=== PATIENT | female | born 1960 | race African-American/Black ===

== ENCOUNTER 2022-05-25 11:43 | Emergency (ER) | payer BC, MEDICAID ==
[~2022-05-25] VITALS: Ht 170.2 cm; Wt 82.0 kg
[2022-05-25 14:19] VITALS: BP 165/102
[2022-05-25] MEDS ORDERED: HYDROCODONE/ACETAMINOPHEN 5/325MG TABLET PO STA (14:19)
[2022-05-25] MEDS ORDERED: T3 PO (16:58)
[2022-05-25] MEDS ORDERED: NAPR-681 PO (16:58)
== END 2022-05-25 18:57 | disposition home or self-care (01) ==
LOC: ER 11:43
DX: S40.011A Contusion of right shoulder, initial encounter (principal); W01.0XXA Fall on same level from slipping, tripping and stumbling without subsequent striking against object, initial encounter; Y93.89 Activity, other specified; Y92.89 Other specified places as the place of occurrence of the external cause; Y99.8 Other external cause status
CPT/HCPCS: 73030; 99283; A4565

== ENCOUNTER 2022-12-07 14:04 | Emergency (ER) | payer BC, MEDICAID ==
[~2022-12-07] VITALS: Ht 170.2 cm; Wt 77.0 kg
[~2022-12-07 14:04] MED LIST: NAPR-681 PO; T3 PO
[2022-12-07] MEDS ORDERED: LIDOCAINE 5% PATCH TOP SCH (18:15)
[2022-12-07] MEDS ORDERED: LIDO700A15 TP (19:56)
[2022-12-07] MEDS ORDERED: IBUP-2029 MT (20:25)
[2022-12-07 20:32] VITALS: BP 136/75
== END 2022-12-07 20:00 | disposition home or self-care (01) ==
LOC: ER 14:04
DX: S20.212A Contusion of left front wall of thorax, initial encounter (principal); Z90.49 Acquired absence of other specified parts of digestive tract; X58.XXXA Exposure to other specified factors, initial encounter; Y93.89 Activity, other specified; Y92.89 Other specified places as the place of occurrence of the external cause; Y99.8 Other external cause status
CPT/HCPCS: 71101; 71250; 99284

== ENCOUNTER 2023-07-11 23:10 | Emergency (ER) | payer BC, MEDICAID ==
[~2023-07-11] VITALS: Ht 170.2 cm; Wt 78.6 kg
[~2023-07-11 23:10] MED LIST changes: +IBUP-2029 MT; +LIDO700A15 TP
[2023-07-11 23:47] VITALS: BP 136/95; PULSE 75; RESP 16; TEMP 97.9; O2SAT 100
[2023-07-12] MEDS ORDERED: IBUP-2029 MT (00:15)
== END 2023-07-12 00:28 | disposition home or self-care (01) ==
LOC: ER 23:10
DX: S90.32XA Contusion of left foot, initial encounter (principal); Z90.49 Acquired absence of other specified parts of digestive tract; X58.XXXA Exposure to other specified factors, initial encounter; Y93.89 Activity, other specified; Y92.89 Other specified places as the place of occurrence of the external cause; Y99.8 Other external cause status
CPT/HCPCS: 73630; 99283

== ENCOUNTER 2025-05-22 14:43 | Inpatient (IN) | payer OTHER, MEDICAID ==
[2025-05-22] VITALS: BP 148/86; PULSE 64; RESP 18; TEMP 36.5; O2SAT 100
[~2025-05-22] VITALS: Ht 170.2 cm; Wt 78.2 kg
[~2025-05-22 14:43] MED LIST changes: +LIDO-53 TP; -LIDO700A15 TP
[2025-05-22] MEDS ORDERED: PANTOPRAZOLE SODIUM 40 MG/VIAL IV ONE (15:00)
[2025-05-22 15:42] LABS: BASOPHILS % 0.8 % (0.0-2.0); EOSINOPHILS % 2.7 % (0.0-5.0); HEMATOCRIT. 38.2 % (36.0-48.0); HEMOGLOBIN. 12.7 g/dL (12.0-16.0); LYMPHOCYTES % 48.1 % (20.0-50.0); MEAN PLATELET VOLUME 7.1 fl (7.4-10.4); MONOCYTES % 9.5 % (2.0-8.0); NEUTROPHILS % 38.9 % (40.0-76.0); PLATELET 280 x1000/uL (130-400); RED BLOOD CELL COUNT 3.73 mill/uL (4.2-5.4); RED CELL DISTRIBUTION WIDTH 13.1 % (11.6-14.6)
[2025-05-22 15:55] LABS: CREATININE 0.7 mg/dL (0.6-1.0)
[2025-05-22 15:56] LABS: ETHANOL BLOOD 69 mg/dL (<10); UREA NITROGEN BLOOD 9 mg/dL (9-23)
[2025-05-22 15:57] LABS: ASPARTATE AMINOTRANSFERASE 37 IU/L (<34)
[2025-05-22 15:58] LABS: BILIRUBIN DIRECT 0.3 mg/dL (<=3.0); BILIRUBIN TOTAL 0.7 mg/dL (0.1-1.0); PROTEIN TOTAL 7.2 g/dL (6.0-8.3)
[2025-05-22 16:00] LABS: INR 1.0
[2025-05-22] MEDS: ONDANSETRON 4MG ODT PO ONE (16:31)
[2025-05-22] MEDS: PANTOPRAZOLE SODIUM 40 MG/VIAL IV ONE (16:32)
[2025-05-22] MEDS: KETOROLAC 30MG/ML VIAL IM ONE (16:32)
[2025-05-22] MEDS: MAGNESIUM/ALUMINUM HYDROXIDE/SIMETHICONE 30ML UDC PO ONE (16:32)
[2025-05-22] MEDS: FAMOTIDINE 20MG TABLET PO ONE (16:32)
[2025-05-22 17:04] LABS: CLARITY URINE CLEAR (CLEAR); COLOR URINE YELLOW (YELLOW); GLUCOSE URINE NEGATIVE (NEGATIVE); KETONES URINE NEGATIVE (NEGATIVE); LEUKOCYTE ESTERASE URINE NEGATIVE (NEGATIVE); NITRITE URINE NEGATIVE (NEGATIVE); OCCULT BLOOD URINE 1+ (NEGATIVE); PH URINE 5.0 (4.5-8.0); PROTEIN URINE NEGATIVE (NEGATIVE); SPECIFIC GRAVITY URINE 1.014 (1.005-1.030); UROBILINOGEN URINE 0.2 E.U./dL (0.2-1.0)
[2025-05-22 17:16] LABS: *AMPHETAMINES SCREEN URINE NEGATIVE (NEGATIVE); *BARBITURATES SCREEN URINE NEGATIVE (NEGATIVE); *BENZODIAZEPINES SCREEN URINE NEGATIVE (NEGATIVE); *COCAINE SCREEN URINE NEGATIVE (NEGATIVE); CANNABINOID URINE SCREEN PRESUMPTIVE POSITIVE (NEGATIVE); ECSTASY MDMA SCREEN URINE NEGATIVE (NEGATIVE); METHADONE URINE SCREEN NEGATIVE (NEGATIVE); OPIATES URINE SCREEN NEGATIVE (NEGATIVE); PHENCYCLIDINE URINE SCREEN NEGATIVE (NEGATIVE)
[2025-05-22 17:25] LABS: BACTERIA URINE 1+; SQUAMOUS EPITHELIAL CELL URINE 1+ /lpf (RARE/1+); WBC URINE 0-2 /hpf (0-2)
[2025-05-22 17:32] VITALS: BP 148/95; PULSE 60; RESP 18; TEMP 36.5292
[2025-05-22] MEDS: DEXT 5%/0.45% NACL 1000ML 1,000 ML IV SCH (18:11)
[2025-05-22 20:00] VITALS: BP 142/87; PULSE 68; RESP 18; TEMP 36.6; O2SAT 98
[2025-05-23] VITALS: BP 148/86; PULSE 64; RESP 18; TEMP 36.5; O2SAT 100
[2025-05-23 00:03] LABS: TROPONIN I HIGH SENSITIVITY 9 ng/L (3.0-34)
[2025-05-23 04:00] VITALS: BP 132/80; PULSE 61; RESP 18; TEMP 36.5; O2SAT 96
[2025-05-23 08:00] VITALS: BP 169/86; PULSE 64; RESP 18; TEMP 35.8; O2SAT 100
[2025-05-23] MEDS: PANTOPRAZOLE SODIUM 40 MG/VIAL IV SCH (09:21)
[2025-05-23] MEDS ORDERED: NALOXONE HCL 0.4MG/ML VIAL IV PRN (11:15)
[2025-05-23] MEDS: MORPHINE SULFATE 2 MG/ML INJ (NOT FOR IM USE) IV PRN (11:25)
[2025-05-23 12:00] VITALS: BP 140/78; PULSE 56; RESP 18; TEMP 36.3; O2SAT 100
[2025-05-23] MEDS: BISACODYL 10MG SUPP PR NR (15:59)
[2025-05-23] MEDS: SORBITOL 70% SOLN 30ML PO SCH (15:59)
[2025-05-23] MEDS: METOCLOPRAMIDE HCL 10MG/2ML VIAL IV SCH (15:59)
[2025-05-23 16:00] VITALS: BP 138/76; PULSE 61; RESP 18; TEMP 35.7; O2SAT 98
[2025-05-24] VITALS (7 sets, daily range): BP systolic 140–156; BP diastolic 80–94; PULSE 64–95; RESP 17–19; TEMP 35.9–36.9; O2SAT 93–100
[2025-05-24 08:33] LABS: INR 1.1
[2025-05-24 08:37] LABS: BASOPHILS % 0.8 % (0.0-2.0); EOSINOPHILS % 0.4 % (0.0-5.0); HEMATOCRIT. 39.3 % (36.0-48.0); HEMOGLOBIN. 13.1 g/dL (12.0-16.0); LYMPHOCYTES % 21.4 % (20.0-50.0); MEAN PLATELET VOLUME 7.8 fl (7.4-10.4); MONOCYTES % 5.3 % (2.0-8.0); NEUTROPHILS % 72.1 % (40.0-76.0); PLATELET 287 x1000/uL (130-400); RED BLOOD CELL COUNT 3.84 mill/uL (4.2-5.4); RED CELL DISTRIBUTION WIDTH 12.7 % (11.6-14.6)
[2025-05-24 08:44] LABS: CREATININE 0.7 mg/dL (0.6-1.0); UREA NITROGEN BLOOD 6 mg/dL (9-23)
[2025-05-24] MEDS ORDERED: LIDOCAINE HCL/PF 1% 10 MG/ML 5ML VIAL ONE (13:16)
[2025-05-24] MEDS ORDERED: PROPOFOL 200MG/20ML VIAL IV ONE ×3 (13:16→13:46)
[2025-05-24] MEDS: FENTANYL CITRATE/PF 50MCG/ML 2ML VIAL IV NR (14:08)
[2025-05-24] MEDS: ONDANSETRON HCL 4MG/2ML INJ IV NR (14:16)
[2025-05-24] MEDS: HYDRALAZINE 20MG/ML VIAL IV SCH (14:39)
[2025-05-24] MEDS: HYDROCODONE/ACETAMINOPHEN 5/325MG TABLET PO PRN (16:41)
[2025-05-24 22:19] LABS: TROPONIN I HIGH SENSITIVITY 7 ng/L (3.0-34)
[2025-05-24 22:25] LABS: VITAMIN B12 SERUM 751 pg/mL (211-911)
[2025-05-25] VITALS: BP 153/89; PULSE 95; RESP 18; TEMP 36.6; O2SAT 99
[2025-05-25 04:00] VITALS: BP 127/80; PULSE 82; RESP 17; TEMP 36.8; O2SAT 98
[2025-05-25] MEDS ORDERED: METRONIDAZOLE 500MG TABLET PO NR ×2 (04:45→22:00)
[2025-05-25] MEDS ORDERED: NEOMYCIN 500MG TABLET PO NR ×2 (06:00→22:00)
[2025-05-25 08:00] VITALS: BP 145/84; PULSE 87; RESP 18; TEMP 36.6; O2SAT 96
[2025-05-25] MEDS: POLYETHYLENE GLYCOL-ELECTROLYTE 4000ML PO NR (09:48)
[2025-05-25 10:17] LABS: BASOPHILS % 0.2 % (0.0-2.0); EOSINOPHILS % 0.1 % (0.0-5.0); HEMATOCRIT. 38.9 % (36.0-48.0); HEMOGLOBIN. 13.2 g/dL (12.0-16.0); LYMPHOCYTES % 12.7 % (20.0-50.0); MEAN PLATELET VOLUME 7.5 fl (7.4-10.4); MONOCYTES % 3.8 % (2.0-8.0); NEUTROPHILS % 83.2 % (40.0-76.0); PLATELET 271 x1000/uL (130-400); RED BLOOD CELL COUNT 3.85 mill/uL (4.2-5.4); RED CELL DISTRIBUTION WIDTH 12.8 % (11.6-14.6)
[2025-05-25 12:00] VITALS: BP 140/75; PULSE 87; RESP 18; TEMP 36.2
[2025-05-25] MEDS: METRONIDAZOLE 500MG TABLET PO NR ×3 (13:18→23:09)
[2025-05-25] MEDS: NEOMYCIN 500MG TABLET PO NR ×3 (13:19→23:09)
[2025-05-25 16:00] VITALS: BP 151/91; PULSE 85; RESP 18; TEMP 36.3; O2SAT 96
[2025-05-25] MEDS: ONDANSETRON HCL 4MG/2ML INJ IV PRN (19:33)
[2025-05-25 20:00] VITALS: BP 144/86; PULSE 102; RESP 19; TEMP 36.6; O2SAT 100
[2025-05-26] VITALS (56 sets, daily range): BP systolic 107–199; BP diastolic 70–162; PULSE 87–122; RESP 12–22; TEMP 36.4–37.3; O2SAT 90–100
[2025-05-26] MEDS ORDERED: POLYMYXIN B SULFATE 500000 UNITS/VIAL ONE ×2 (06:21→09:49)
[2025-05-26] MEDS ORDERED: LIDOCAINE HCL 1% 10 MG/ML 10ML VIAL ONE ×2 (06:21→07:42)
[2025-05-26] MEDS ORDERED: BUPIVACAINE HCL/PF 0.5% (5MG/ML) 10ML ONE (06:21)
[2025-05-26] MEDS ORDERED: METHYLENE BLUE 50MG/10ML AMP ONE (07:22)
[2025-05-26] MEDS ORDERED: FAMOTIDINE 20MG/2ML VIAL IV ONE (07:40)
[2025-05-26] MEDS ORDERED: ACETAMINOPHEN 1000MG/100ML 100 ML IV ONE (07:40)
[2025-05-26] MEDS ORDERED: DEXAMETHASONE 4MG/ML 1ML VIAL ONE (07:42)
[2025-05-26] MEDS ORDERED: ONDANSETRON HCL 4MG/2ML INJ ONE (07:42)
[2025-05-26] MEDS ORDERED: ROCURONIUM BROMIDE 10MG/ML VIAL 5ML IV ONE ×3 (07:42→10:56)
[2025-05-26] MEDS ORDERED: PROPOFOL 200MG/20ML VIAL IV ONE ×2 (07:45→10:58)
[2025-05-26] MEDS ORDERED: FENTANYL CITRATE/PF 50MCG/ML 2ML VIAL ONE (07:46)
[2025-05-26] MEDS ORDERED: CEFAZOLIN SODIUM 1000MG/VIAL ONE (08:02)
[2025-05-26] MEDS ORDERED: METOCLOPRAMIDE HCL 10MG/2ML VIAL ONE (08:03)
[2025-05-26 08:07] LABS: BASOPHILS % 0.3 % (0.0-2.0); EOSINOPHILS % 0.0 % (0.0-5.0); HEMATOCRIT. 36.9 % (36.0-48.0); HEMOGLOBIN. 12.3 g/dL (12.0-16.0); LYMPHOCYTES % 17.3 % (20.0-50.0); MEAN PLATELET VOLUME 8.1 fl (7.4-10.4); MONOCYTES % 4.2 % (2.0-8.0); NEUTROPHILS % 78.2 % (40.0-76.0); PLATELET 249 x1000/uL (130-400); RED BLOOD CELL COUNT 3.64 mill/uL (4.2-5.4); RED CELL DISTRIBUTION WIDTH 12.8 % (11.6-14.6)
[2025-05-26 08:21] LABS: CREATININE 0.7 mg/dL (0.6-1.0); UREA NITROGEN BLOOD 7 mg/dL (9-23)
[2025-05-26] MEDS ORDERED: ONDANSETRON HCL 4MG/2ML INJ IV PRN (08:30)
[2025-05-26] MEDS ORDERED: ALBUTEROL (0.083%) 2.5MG/3ML NEB HHN PRN (08:30)
[2025-05-26] MEDS ORDERED: HYDROMORPHONE HCL/PF 1MG/ML INJ ONE (08:40)
[2025-05-26] MEDS ORDERED: HYDROMORPHONE HCL/PF 1MG/ML INJ IV PRN (09:00)
[2025-05-26] MEDS ORDERED: FENTANYL CITRATE/PF 50MCG/ML 2ML VIAL IV PRN (09:00)
[2025-05-26] MEDS ORDERED: HYDRALAZINE 20MG/ML VIAL IV PRN (09:00)
[2025-05-26] MEDS: MORPHINE SULFATE 4 MG/ML INJ (FOR IV/IM USE) IV PRN (15:05)
[2025-05-26] MEDS: PROPOFOL 10MG/ML 100ML 100 ML IV PRN (15:05)
[2025-05-26 16:11] LABS: BG BASE EXCESS -2.3 mmol/L (-2.0-3.0); BG CARBOXYHEMOGLOBIN 0.6 % (0.5-1.5); BG DEOXYHEMOGLOBIN 1.5 % (0.0-5.0); BG FRACTION INSPIRED OXYGEN 100; BG HCO3 ACT 24.0 mmol/L (21.0-28.0); BG METHEMOGLOBIN 0.6 % (0.5-1.5); BG OXYGEN SATURATION 98.5 % (94.0-98.0); BG OXYHEMOGLOBIN 97.3 % (94.0-98.0); BG PCO2 46.8 mmHg (32.0-45.0); BG PEEP (cmH2O) 5.0 cmH2O; BG PH 7.328 (7.350-7.450); BG PO2 167.7 mmHg (83.0-108.0); BG SAMPLE SITE LEFT RADIAL; BG TIDAL VOLUME(mL) 500.0 mL; BG TOTAL HEMOGLOBIN 16.7 g/dL (12.0-16.0); BG VENT MODE VENT - AC; BG VENT RATE 12.0 set
[2025-05-26] MEDS: KCL 20MEQ/100ML PREMIX 100 ML IV SCH (17:27)
[2025-05-26] MEDS: IPRATROPIUM/ALBUTEROL 0.5-3(2.5)MG/3ML NEB HHN SCH (20:46)
[2025-05-27] VITALS (85 sets, daily range): BP systolic 111–148; BP diastolic 74–106; PULSE 93–116; RESP 13–25; TEMP 36.6–38.2; O2SAT 90–100
[2025-05-27 00:36] LABS: PLATELET 220 x1000/uL (130-400); RED BLOOD CELL COUNT 3.78 mill/uL (4.2-5.4); RED CELL DISTRIBUTION WIDTH 12.5 % (11.6-14.6)
[2025-05-27 00:49] LABS: CREATININE 0.8 mg/dL (0.6-1.0); UREA NITROGEN BLOOD 10 mg/dL (9-23)
[2025-05-27 06:06] LABS: BASOPHILS % 0.2 % (0.0-2.0); EOSINOPHILS % 0.0 % (0.0-5.0); HEMATOCRIT. 38.8 % (36.0-48.0); HEMOGLOBIN. 12.7 g/dL (12.0-16.0); LYMPHOCYTES % 9.8 % (20.0-50.0); MEAN PLATELET VOLUME 8.3 fl (7.4-10.4); MONOCYTES % 7.5 % (2.0-8.0); NEUTROPHILS % 82.5 % (40.0-76.0); PLATELET 228 x1000/uL (130-400); RED BLOOD CELL COUNT 3.76 mill/uL (4.2-5.4); RED CELL DISTRIBUTION WIDTH 12.8 % (11.6-14.6)
[2025-05-27 10:14] LABS: BG BASE EXCESS -0.5 mmol/L (-2.0-3.0); BG CARBOXYHEMOGLOBIN 1.0 % (0.5-1.5); BG CPAP (cmH2O) 5.0 cm(H2O); BG DEOXYHEMOGLOBIN 3.4 % (0.0-5.0); BG FRACTION INSPIRED OXYGEN 40; BG HCO3 ACT 23.6 mmol/L (21.0-28.0); BG METHEMOGLOBIN 0.2 % (0.5-1.5); BG OXYGEN SATURATION 96.6 % (94.0-98.0); BG OXYHEMOGLOBIN 95.4 % (94.0-98.0); BG PCO2 37.2 mmHg (32.0-45.0); BG PH 7.421 (7.350-7.450); BG PO2 76.1 mmHg (83.0-108.0); BG SAMPLE SITE RIGHT RADIAL; BG TOTAL HEMOGLOBIN 12.7 g/dL (12.0-16.0); BG VENT MODE VENT - CPAP
[2025-05-27 19:08] LABS: BG BASE EXCESS 4.7 mmol/L (-2.0-3.0); BG CARBOXYHEMOGLOBIN 0.2 % (0.5-1.5); BG DEOXYHEMOGLOBIN 2.5 % (0.0-5.0); BG FRACTION INSPIRED OXYGEN 35; BG HCO3 ACT 28.8 mmol/L (21.0-28.0); BG METHEMOGLOBIN 0.1 % (0.5-1.5); BG OXYGEN SATURATION 97.5 % (94.0-98.0); BG OXYHEMOGLOBIN 97.2 % (94.0-98.0); BG PCO2 41.1 mmHg (32.0-45.0); BG PH 7.464 (7.350-7.450); BG PO2 85.4 mmHg (83.0-108.0); BG SAMPLE SITE RIGHT RADIAL; BG TOTAL HEMOGLOBIN 13.3 g/dL (12.0-16.0); BG VENT MODE COOL AEROSOL
[2025-05-27] MEDS: PIPERACILLIN/TAZO 3.375G/50ML 50 ML IV SCH (21:10)
[2025-05-27] MEDS: MORPHINE SULFATE 2 MG/ML INJ (NOT FOR IM USE) IV PRN (21:10)
[2025-05-28] VITALS (45 sets, daily range): BP systolic 111–155; BP diastolic 77–101; PULSE 81–103; RESP 16–33; TEMP 36.4–37.8; O2SAT 94–100
[2025-05-28 04:55] LABS: BASOPHILS % 0.2 % (0.0-2.0); EOSINOPHILS % 0.0 % (0.0-5.0); HEMATOCRIT. 33.1 % (36.0-48.0); HEMOGLOBIN. 11.2 g/dL (12.0-16.0); LYMPHOCYTES % 9.5 % (20.0-50.0); MEAN PLATELET VOLUME 7.8 fl (7.4-10.4); MONOCYTES % 4.8 % (2.0-8.0); NEUTROPHILS % 85.5 % (40.0-76.0); PLATELET 259 x1000/uL (130-400); RED BLOOD CELL COUNT 3.29 mill/uL (4.2-5.4); RED CELL DISTRIBUTION WIDTH 12.7 % (11.6-14.6)
[2025-05-28] MEDS: METOCLOPRAMIDE HCL 10MG/2ML VIAL IV SCH (23:30)
[2025-05-29] VITALS (11 sets, daily range): BP systolic 104–130; BP diastolic 68–84; PULSE 72–98; RESP 18–20; TEMP 36.6–37.3; O2SAT 97–100
[2025-05-29] MEDS: HYDROCODONE/ACETAMINOPHEN 5/325MG TABLET PO PRN (22:24)
[2025-05-30] VITALS (12 sets, daily range): BP systolic 106–133; BP diastolic 65–84; PULSE 61–101; RESP 17–19; TEMP 36.6–37.3; O2SAT 95–100
[2025-05-30 07:06] LABS: BASOPHILS % 0.3 % (0.0-2.0); EOSINOPHILS % 1.1 % (0.0-5.0); HEMATOCRIT. 30.1 % (36.0-48.0); HEMOGLOBIN. 10.5 g/dL (12.0-16.0); LYMPHOCYTES % 16.3 % (20.0-50.0); MEAN PLATELET VOLUME 7.1 fl (7.4-10.4); MONOCYTES % 11.1 % (2.0-8.0); NEUTROPHILS % 71.2 % (40.0-76.0); PLATELET 327 x1000/uL (130-400); RED BLOOD CELL COUNT 3.06 mill/uL (4.2-5.4); RED CELL DISTRIBUTION WIDTH 12.4 % (11.6-14.6)
[2025-05-30 07:22] LABS: UREA NITROGEN BLOOD 7 mg/dL (9-23)
[2025-05-30 09:45] LABS: CREATININE 0.5 mg/dL (0.6-1.0)
[2025-05-30] MEDS: POTASSIUM CHLORIDE 20MEQ TABLET SR PO NR (11:40)
[2025-05-30] MEDS: KCL 20MEQ/100ML PREMIX 100 ML IV SCH (13:26)
[2025-05-30] MEDS: POTASSIUM CHLORIDE 20MEQ/PACKET PO SCH (17:47)
[2025-05-30] MEDS: MICAFUNGIN 100 MG in SODIUM CHLORIDE 0.9% 100 ML IV SCH (22:04)
[2025-05-31] VITALS (9 sets, daily range): BP systolic 110–152; BP diastolic 70–91; PULSE 88–101; RESP 16–20; TEMP 36.2–37.9; O2SAT 90–99
[2025-05-31 06:17] LABS: BASOPHILS % 0.2 % (0.0-2.0); EOSINOPHILS % 1.4 % (0.0-5.0); HEMATOCRIT. 30.0 % (36.0-48.0); HEMOGLOBIN. 10.1 g/dL (12.0-16.0); LYMPHOCYTES % 16.7 % (20.0-50.0); MEAN PLATELET VOLUME 7.1 fl (7.4-10.4); MONOCYTES % 11.6 % (2.0-8.0); NEUTROPHILS % 70.1 % (40.0-76.0); PLATELET 381 x1000/uL (130-400); RED BLOOD CELL COUNT 3.01 mill/uL (4.2-5.4); RED CELL DISTRIBUTION WIDTH 13.3 % (11.6-14.6)
[2025-05-31 06:22] LABS: CREATININE 0.5 mg/dL (0.6-1.0); UREA NITROGEN BLOOD 8 mg/dL (9-23)
[2025-05-31] MEDS: POTASSIUM CHLORIDE 20MEQ TABLET SR PO SCH (14:13)
[2025-05-31] MEDS: TRAZODONE HCL 50MG TABLET PO PRN (21:43)
[2025-05-31] MEDS: MELATONIN 3MG TABLET PO SCH (21:44)
[2025-06-01] VITALS: BP 128/62; PULSE 80; RESP 18; TEMP 36.4; O2SAT 97
[2025-06-01 04:00] VITALS: BP 116/80; PULSE 80; RESP 18; TEMP 36.7; O2SAT 98
[2025-06-01 08:00] VITALS: BP 112/70; PULSE 78; RESP 18; TEMP 36.5
[2025-06-01 09:27] LABS: CREATININE 0.6 mg/dL (0.6-1.0)
[2025-06-01 09:30] LABS: UREA NITROGEN BLOOD 8 mg/dL (9-23)
[2025-06-01 12:00] VITALS: BP 123/81; PULSE 83; RESP 18; TEMP 36.6; O2SAT 100
[2025-06-01] MEDS ORDERED: LEVO750T68 PO (12:23)
[2025-06-01] MEDS ORDERED: METR-167 MT (12:23)
[2025-06-01] MEDS ORDERED: POTA-205 MT (12:23)
[2025-06-01] MEDS ORDERED: AMOX-494 MT (12:23)
[2025-06-01] MEDS ORDERED: FLUC200T51 MT (12:23)
[2025-06-01] MEDS: POTASSIUM CHLORIDE 20MEQ TABLET SR PO NR (12:54)
[2025-06-01 14:37] VITALS: BP 123/81; PULSE 85; RESP 18; TEMP 97.9
== END 2025-06-01 16:00 | disposition home health service (06) | DRG 853 ==
LOC: ER 14:43 → 5WST 16:47 → 8EST 05-23 05:45 → MICUSO 05-26 10:57 → 8WST 05-28 23:45
PROVIDERS: ADMIT Internal Medicine; ATTEND Internal Medicine
PROC: 0DBN8ZX Excision of Sigmoid Colon, Via Natural or Artificial Opening Endoscopic, Diagnostic (ICD-10-PCS; 2025-05-24)
PROC: 0DTF0ZZ Resection of Right Large Intestine, Open Approach (ICD-10-PCS; principal; 2025-05-26)
PROC: 0D1B0Z4 Bypass Ileum to Cutaneous, Open Approach (ICD-10-PCS; 2025-05-26)
PROC: 5A1945Z Respiratory Ventilation, 24-96 Consecutive Hours (ICD-10-PCS; 2025-05-26)
PROC: 0BH17EZ Insertion of Endotracheal Airway into Trachea, Via Natural or Artificial Opening (ICD-10-PCS; 2025-05-26)
DX: A41.9 Sepsis, unspecified organism (principal); J95.821 Acute postprocedural respiratory failure; K65.0 Generalized (acute) peritonitis; C19 Malignant neoplasm of rectosigmoid junction; D62 Acute posthemorrhagic anemia; R57.9 Shock, unspecified; K57.20 Diverticulitis of large intestine with perforation and abscess without bleeding; J44.9 Chronic obstructive pulmonary disease, unspecified; K64.8 Other hemorrhoids; R19.09 Other intra-abdominal and pelvic swelling, mass and lump; E61.1 Iron deficiency; E87.6 Hypokalemia; F43.22 Adjustment disorder with anxiety; F10.10 Alcohol abuse, uncomplicated; F17.210 Nicotine dependence, cigarettes, uncomplicated; Z93.3 Colostomy status; Z86.0100 Personal history of colon polyps, unspecified
CPT/HCPCS: 31720; 36415; 36600; 71045; 74176; 80048; 80076; 80305; 80320; 81003; 82375; 82378; 82607; 82805; 82962; 83540; 83550; 83735; 84132; 84145; 84478; 84484; 85025; 85027; 86850; 86900; 87070; 87075; 87076; 87077; 87106; 87186; 88305; 88307; 92610; 93970; 94002; 94003; 94070; 94640; 94664; 97116; 97162; 98960; 99291; A4606; J0360; J0665; J0690; J1100; J1171; J1308; J1885; J2003; J2248; J2270; J2405; J2470; J2543; J2704; J2765; J3010; J3480; J3490; J7050; Q0162; Q9968; G0480; J0131